=== PATIENT | female | born 1965 | race Caucasian/White ===

== ENCOUNTER 2024-11-08 21:46 | Emergency (ER) | payer OTHER ==
[2024-11-08 21:58] VITALS: BP 134/79; PULSE 88; RESP 18; TEMP 98; BMI 24.9
[2024-11-08] MEDS ORDERED: LIDOCAINE PATCH REMOVAL MC SCH (22:00)
[2024-11-08] MEDS ORDERED: LIDOCAINE 4% PATCH TP ONE (22:28)
[2024-11-08] MEDS: LIDOCAINE 4% PATCH TP ONE (22:34)
== END 2024-11-08 23:10 | disposition home or self-care (01) ==
LOC: JER 21:46
DX: M54.2 Cervicalgia (principal); V43.02XA Car driver injured in collision with other type car in nontraffic accident, initial encounter
CPT/HCPCS: 72125-TC; 99284-25